=== PATIENT | female | born 1935 | race American Indian/Alaskan Native ===

== ENCOUNTER 2017-01-07 11:38 | Emergency (ER) | payer MEDICARE ==
[2017-01-07] MEDS ORDERED: PEPCID IV ONE (15:50)
[2017-01-07] MEDS ORDERED: BENADRYL IV ONE (15:50)
[2017-01-07] MEDS ORDERED: NACL 0.9% 500 ML 500 ML IV ONE (15:50)
--- NOTE | 2017-01-07 15:56 | Emergency Department Report ---
ED General Adult HPI - General Chief complaint: Skin Rash Stated complaint: RASH, ARMS SWELLING AND NAUSEA Time Seen by Provider: 01/07/17 15:36 Source: patient Mode of arrival: Ambulatory Limitations: No Limitations - History of Present Illness Initial comments: Pt states that she came into the ED today for rash that started to her RUE yesterday. PT states the rash has worsened and she has noticed swelling to bue. PT states that due her breast ca surgery, she had lymph nodes removed from her LUE and she will get intermittent arm swelling. PT states she was started on Nystatin this past week to prepare for oral surgery by ENT. PT also states that her labs on 12-28-16 showed hypokalemia which pt states she has a hx of and she was started on Potassium pills. 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 PT denies and chest pain or sob. MD Complaint: rash/ swelling -: Gradual, days(s) Location: chest, back, abdomen, upper extremity, lower extremity Severity scale (0 -10): 0 Quality: constant (itching ) Consistency: constant Associated Symptoms: fever/chills, nausea/vomiting. denies: shortness of breath , weakness - Related Data Home Medications Medication Instructions Recorded Confirmed Last Taken Ca/D3/Mag#11/Zinc/Flight Agent/Mihai/Bor 1 each PO DAILY 11/20/14 12/25/14 12/24/14 [Caltrate 600+D Plus Tablet] Ginkgo Biloba 120 mg PO DAILY 11/20/14 12/25/14 12/24/14 Glucosamine/MSM/Chondroitin A 1 each PO DAILY 11/20/14 12/25/14 12/24/14 [Triple Flex Caplet] Loratadine [Claritin] 10 mg PO PRN PRN 11/20/14 12/25/14 11/27/14 Metoprolol [Lopressor] 12.5 mg PO DAILY 11/20/14 12/25/14 12/24/14 09:00 [place]-3 Fatty Acids [Fish Oil] 1,000 mg PO BID 11/20/14 12/25/14 12/24/14 17:00 Sucralfate [Carafate] 1 gm PO ACHS 11/20/14 12/25/14 12/24/14 22:00 Sulfacetamide/Prednisolone Sp 2 drop OP Q4HR 12/18/14 12/25/14 12/21/14 [Sulf-Pred 10-0.25% Eye Drops] Previous Rx's Medication Instructions Recorded Last Taken Type Famotidine [Pepcid] 20 mg PO BID #30 tablet 01/07/17 Unknown Rx diphenhydrAMINE [Benadryl CAP] 25 mg PO Q6HR PRN #10 capsule 01/07/17 Unknown Rx Allergies Allergy/AdvReac Type Severity Reaction Status Date / Time oxytetracycline Allergy rash, Verified 01/07/17 11:42 [From Terramycin] itching, swelling oxytetracycline HCl Allergy rash, Verified 01/07/17 11:42 [From Terramycin] itching, swelling Penicillins Allergy rash, Verified 01/07/17 11:42 itching, swelling tetracycline Allergy rash, Verified 01/07/17 11:42 itching, swelling ED Review of Systems ROS: Stated complaint: RASH, ARMS SWELLING AND NAUSEA Other details as noted in HPI Comment: All other systems reviewed and negative Constitutional: fever (subjective, rash felt warm ), malaise. denies: chills Respiratory: denies: cough, shortness of breath Cardiovascular: denies: chest pain Gastrointestinal: nausea. denies: abdominal pain, vomiting Musculoskeletal: denies: back pain Skin: rash, change in color, pruritus ED Past Medical Hx - Past Medical History Hx Hypertension: Yes ("prehypertensive", on metoprolol ) Hx Heart Attack/AMI: No Hx GERD: Yes Hx Liver Disease: No Hx Renal Disease: No Hx of Cancer: Yes (breast ) Hx Arthritis: Yes Hx Seizures: No Hx Asthma: No - Surgical History Hx Breast Surgery: Yes (right lumpectomy) - Social History Smoking Status: Never Smoker Substance Use Type: None - Medications Home Medications: Home Medications Medication Instructions Recorded Confirmed Last Taken Type Ca/D3/Mag#11/Zinc/Flight Agent/Mihai/Bor 1 each PO DAILY 11/20/14 12/25/14 12/24/14 History [Caltrate 600+D Plus Tablet] Ginkgo Biloba 120 mg PO DAILY 11/20/14 12/25/14 12/24/14 History Glucosamine/MSM/Chondroitin A 1 each PO DAILY 11/20/14 12/25/14 12/24/14 History [Triple Flex Caplet] Loratadine [Claritin] 10 mg PO PRN PRN 11/20/14 12/25/14 11/27/14 History Metoprolol [Lopressor] 12.5 mg PO DAILY 11/20/14 12/25/14 12/24/14 09:00 History [place]-3 Fatty Acids [Fish Oil] 1,000 mg PO BID 11/20/14 12/25/14 12/24/14 17:00 History Sucralfate [Carafate] 1 gm PO ACHS 11/20/14 12/25/14 12/24/14 22:00 History Sulfacetamide/Prednisolone Sp 2 drop OP Q4HR 12/18/14 12/25/14 12/21/14 History [Sulf-Pred 10-0.25% Eye Drops] Famotidine [Pepcid] 20 mg PO BID #30 tablet 01/07/17 Unknown Rx diphenhydrAMINE [Benadryl CAP] 25 mg PO Q6HR PRN #10 capsule 01/07/17 Unknown Rx ED Physical Exam - General Limitations: No Limitations General appearance: alert, in no apparent distress - Head Head exam: Present: atraumatic, normocephalic, normal inspection - Eye Eye exam: Present: normal appearance, PERRL, EOMI. Absent: conjunctival injection, nystagmus - ENT ENT exam: Present: normal exam, normal external ear exam - Neck Neck exam: Present: normal inspection, full ROM - Respiratory Respiratory exam: Present: normal lung sounds bilaterally. Absent: respiratory distress, chest wall tenderness - Cardiovascular Cardiovascular Exam: Present: regular rate, normal rhythm, normal heart sounds - GI/Abdominal GI/Abdominal exam: Present: soft. Absent: tenderness - Extremities Exam Extremities exam: Present: full ROM, normal capillary refill, other (edema noted to bue). Absent: tenderness, pedal edema - Back Exam Back exam: Present: full ROM, rash noted. Absent: normal inspection, tenderness , CVA tenderness (R), CVA tenderness (L) - Neurological Exam Neurological exam: Present: alert, oriented X3, normal gait - Psychiatric Psychiatric exam: Present: normal affect, normal mood - Skin Skin exam: Present: warm, dry, intact, rash, erythema. Absent: normal color - Expanded Skin Exam Expanded Distribution of rash: generalized Description of rash: Present: erythematous, swelling. Absent: vesicular, bullous, petechial, urticarial, indurated ED Course Vital Signs 01/07/17 11:43 Temperature 98.7 F Pulse Rate 100 H Respiratory 18 Rate Blood Pressure 114/60 O2 Sat by Pulse 100 Oximetry - Reevaluation(s) Reevaluation #1: 01/07/17 16:02 PT aware of plan of care. Reevaluation #2: 01/07/17 18:18 PT states the itching improved sp Benadryl and Pepcid. PT still with significant erythematous rash. PT was also seen by Dr Alonso. Reevaluation #3: 01/07/17 18:52 PT's daughter at bedside and states that pt took prednisone 1-2 weeks ago. PT has had previous allergic reaction to steroids. Will not give decadron. - Pulse Oximetry Interpretation Digit-Finger Initial Pulse Oximetry Readin Actions Taken: none ED Medical Decision Making - Lab Data Result diagrams: 01/07/17 15:51 01/07/17 15:51 Laboratory Results - last 24 hr 01/07/17 01/07/17 15:51 15:51 WBC 12.4 H RBC 5.06 H Hgb 15.4 H Hct 48.5 H MCV 96 MCH 30 MCHC 32 RDW 13.5 Plt Count 230 Lymph % (Auto) Executive Consultant Dougherty % (Auto) Executive Consultant Eos % (Auto) Executive Consultant Baso % (Auto) Executive Consultant Lymph # Executive Consultant Dougherty # Executive Consultant Eos # Executive Consultant Baso # Executive Consultant Seg Neutrophils % Executive Consultant Seg Neutrophils # Executive Consultant Potassium 3.5 L Chloride 96.2 L Carbon Dioxide 25 Anion Gap 20 BUN 10 Creatinine 0.9 Estimated GFR > 60 BUN/Creatinine Ratio 11.11 Glucose 98 Calcium 9.4 Magnesium 2.20 Total Bilirubin 0.60 AST 27 ALT 20 Alkaline Phosphatase 66 Total Protein 6.5 Albumin 3.9 Albumin/Globulin Ratio 1.5 Dr Alonso called lab, given verbal result of NA 138 - Differential Diagnosis allergic reaction, dermatitis, Critical Care Time: No Critical care attestation.: If time is entered above; I have spent that time in minutes in the direct care of this critically ill patient, excluding procedure time. ED Disposition Clinical Impression: Rash and nonspecific skin eruption Disposition: - TO HOME OR SELFCARE Is pt being admited?: No Does the pt Need Aspirin: No Condition: Stable Instructions: Urticaria (ED), Antibiotic Medication Allergy (ED) Additional Instructions: Only use hypoallergenic skin products, soaps, detergents Stop taking your prescription medication for acid reflux It appears your rash may be an allergic reaction to a medication. Hold all non necessary medications. Follow up with your PCP on Monday Follow up with Dermatology in 3-5 days Return to the ED for worsening or concerns Prescriptions: diphenhydrAMINE [Benadryl CAP] 25 mg PO Q6HR PRN #10 capsule PRN Reason: Itching Famotidine [Pepcid] 20 mg PO BID #30 tablet Referrals: PRIMARY CARE, [Primary Care Provider] - 3-5 Days SHAUNNA COLLAZO MD [Staff Physician] - 3-5 Days [facility] [Provider Group] - 3-5 Days Time of Disposition: 18:25
[2017-01-07 16:27] LABS: Hematocrit 48.5 % (30.3-42.9); Hemoglobin 15.4 gm/dl (10.1-14.3); Mean Corpuscular HGB Conc 32 % (30-34); Mean Corpuscular Hemoglobin 30 pg (28-32); Mean Corpuscular Volume 96 fl (79-97); Red Blood Count 5.06 M/mm3 (3.65-5.03); Red Cell Distribution Width 13.5 % (13.2-15.2); White Blood Count 12.4 K/mm3 (4.5-11.0)
[2017-01-07 16:31] LABS: Alanine Aminotransferase 20 units/L (7-56); Albumin 3.9 g/dL (3.9-5); Albumin/Globulin Ratio 1.5 %; Alkaline Phosphatase 66 units/L (35-129); Anion Gap 20 mmol/L; BUN/Creatinine Ratio 11.11; Blood Urea Nitrogen 10 mg/dL (7-17); Calcium 9.4 mg/dL (8.4-10.2); Carbon Dioxide 25 mmol/L (22-30); Chloride 96.2 mmol/L (98-107); Glucose 98 mg/dL (65-100); Potassium 3.5 mmol/L (3.6-5.0); Sodium 138 mmol/L (137-145); Total Protein 6.5 g/dL (6.3-8.2)
[2017-01-07] MEDS ORDERED: NACL 0.9% 250ML 500 ML ONE (16:35)
[2017-01-07 16:49] LABS: Platelet Count 230 K/mm3 (140-440)
[2017-01-07] MEDS ORDERED: DECADRON IV ONE (18:17)
[2017-01-07 19:00] VITALS: BP 131/61
== END 2017-01-07 19:07 | disposition home or self-care (01) ==
LOC: ED 11:38
DX: R21 Rash and other nonspecific skin eruption (principal); K21.9 Gastro-esophageal reflux disease without esophagitis; M19.90 Unspecified osteoarthritis, unspecified site; I10 Essential (primary) hypertension; C50.919 Malignant neoplasm of unspecified site of unspecified female breast; Z88.0 Allergy status to penicillin; Z88.1 Allergy status to other antibiotic agents
CPT/HCPCS: 36415; 80053; 83735; 85025; 96374; 96375; 99283; J1100; J1200; J7050

== ENCOUNTER 2017-01-12 10:23 | Outpatient (CLI) | payer MEDICARE | END 2017-01-12 10:24 | disposition home or self-care (01) | LOC: LABHHL 10:23 | PROVIDERS: ATTEND Otolaryngology | DX: D10.1 Benign neoplasm of tongue (principal); K14.0 Glossitis; Z85.3 Personal history of malignant neoplasm of breast; Z87.891 Personal history of nicotine dependence | CPT/HCPCS: 88305; 88312 ==